=== PATIENT | female | born 2005 | race Caucasian/White ===

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

== ENCOUNTER 2023-07-20 18:27 | Emergency (ER) | payer OTHER, SELFPAY ==
[2023-07-20 18:50] VITALS: BP 126/69; PULSE 70; RESP 21; TEMP 36.7; O2SAT 98; BMI 27.3
[2023-07-20 19:08] LABS: UTC Strep Screen (Rapid) Positive (Negative)
[2023-07-20 19:09] LABS: UTC Influenza A Antigen Negative (Negative); UTC Influenza B Antigen Negative (Negative)
[2023-07-20 19:10] VITALS: BP 126/69; PULSE 70; RESP 21; TEMP 36.7; O2SAT 98
--- NOTE | 2023-07-20 19:12 | ED_ITS ---
Discharge Plan Disposition Patient Disposition: Home, Self-Care Condition: Good Prescriptions Prescriptions: New azithromycin [azithromycin] 250 mg tablet 250 mg PO DIRECTED Qty: 4 0RF Rx Instructions: one (1) tablet day #2 thru #5- FIRST DOSE GIVEN IN [facility] No Action norgestimate-ethinyl estradiol [Tri-Sprintec (28)] 0.18/0.215/0.25 mg-35 mcg (28) tablet See Rx Instructions .ROUTE .COMPLEX Qty: 28 0RF Dose Instruction: TAKE ONE TABLET BY MOUTH ONCE A DAY Rx Instructions: TAKE ONE TABLET BY MOUTH ONCE A DAY Referrals Follow up/Referrals: Provider,Referral, MD [Primary Care Provider] - See instructions Activity Restrictions/Add. Instructions Additional Instructions/Restrictions: Start antibiotics today be sure to take it as ordered with the full length of time although you should start feeling better in 24-48 hours. Change toothbrush and toothpaste 24-48 hours after starting antibiotics Tylenol or Motrin as needed for fever or pain Encourage fluids, water, Gatorade, Powerade, try cold fluids, popsicles, ice cream will make it feel better You are contagious for 24 hours. Avoid kissing anyone, no eating or drinking after anyone. You are contagious. Follow-up the ER for new or worsening symptoms or no noticeable improvement over the next 24-48 hours. Follow-up with PCP this week. Clinical Impressions Clinical Impression: Strep sore throat Stand Alone Forms Stand Alone Forms: Work/School Release Instructions Patient Instructions: DI for Strep Throat Discharge ED Provider: Airam ([facility])Xiomy [facility] HPI General Stated complaint: Sore throat,earache Mode of Arrival: Ambulatory Source of Information: Patient Limitations: No Limitations Time Seen by Provider: 07/20/23 19:17 Description of Symptoms (Recalled from Triage Doc. by RN): PATIENT C/O SORE THR OAT, COUGH, RUNNY NOSE, CHEST CONGESTION AND EAR PAIN SINCE SATURDAY HEENT Symptoms (Recalled from RN notes): Yes Resp Symptoms (Recalled from RN notes): Yes Skin Symptoms (Recalled from RN notes): No MS Symptoms (Recalled from RN notes): No Functional Status (Recalled from RN notes): WNL History of Present Illness Provider Complaint: 17 YR OLD FEMALE PRESENTS FOR C/O SORE THROAT, COUGH, RUNNY NOSE, CHEST CONGESTION AND EAR PAIN SINCE SATURDAY Related Data Previous Rx's Medication Instructions Recorded norgestimate-ethinyl estradiol See Rx Instructions .Route 11/26/22 0.18 mg/0.215mg/0.25mg-35 .COMPLEX #28 tabs mcg(28)tablet (Tri-Sprintec (28)) azithromycin 250 mg tablet 250 mg PO DIRECTED #4 tabs 07/20/23 Allergies Allergy/AdvReac Type Severity Reaction Status Date / Time No Known Allergies Allergy Verified 06/13/22 13:18 Worker's Comp Is this a Worker's Comp case?: No [facility] Disclaimer: The information contained in this section may have been updated after the patie nt was seen, as this information can be updated by other users. Medical History (Reviewed 07/20/23 @ 19:17 by Xiomy Alegria ([facility]), [employer]) Asthma in Pediatric Patient Attention Deficit Hyperactivity Disorder (ADHD) Social History (Reviewed 07/20/23 @ 19:17 by Xiomy Alegria ([facility]), [employer]) Smoking Status: Never smoker alcohol intake: never substance use type: denies use current occupational status: student Travel in the last 8 weeks: None household members: family ROS Obtained: Yes All systems reviewed & no additional complaints except as documented Constitutional Constitutional: Reports system reviewed and no additional complaints, except as documented, Reports as per HPI and Reports fever(s) Eyes Eyes: Reports system reviewed and no additional complaints, except as documented ENT Ears, Nose, Mouth, and Throat: Reports system reviewed and no additional complaints, except as documented, Reports as per HPI, Reports otalgia, Reports nasal congestion, Reports nasal discharge, Reports sinus pain and Reports sore throat Cardiovascular Cardiovascular: Reports system reviewed and no additional complaints, except as documented Respiratory Respiratory: Reports system reviewed and no additional complaints, except as documented and Reports cough Musculoskeletal Musculoskeletal: Reports system reviewed and no additional complaints, except as documented Integumentary/Breasts Skin/Breast: Reports system reviewed and no additional complaints, except as documented Neurologic Neurologic: Reports system reviewed and no additional complaints, except as documented Endocrine Endocrine: Reports system reviewed and no additional complaints, except as documented Hematologic/Lymphatic Henatologic/Lymphatic: Reports system reviewed and no additional complaints, except as documented Allergic/Immunologic Allergic/Immunologic: Reports system reviewed and no additional complaints, except as documented Physical Exam General General appearance: alert and in no apparent distress Head Head exam: atraumatic Eye Eye exam: Present normal appearance and PERRL ENT ENT exam: Present mucous membranes moist and TM's normal bilaterally Expanded ENT Exam TM/Canal exam: Left TM: erythema Throat exam: Present tonsillar erythema, tonsillomegaly and tonsillar exudate Respiratory Respiratory exam: Present normal lung sounds bilaterally Cardiovascular Cardiovascular exam: Present regular rate and normal rhythm Neurological Exam Neurological exam: Present alert and oriented X3 Skin Skin exam: Present warm Medical Decision Making Medical Records Medical records reviewed: Yes I reviewed the patient's medical records. Ford Inquiry Pt receiving controlled substance: No Ford was queried for this patient: No Vital Signs: 07/20/23 18:50 07/20/23 19:10 Temperature 98.0 F 98.0 F Temperature Source Oral Pulse Rate 70 Pulse Rate [Left Brachial] 70 Respiratory Rate 21 21 Blood Pressure 126/69 Blood Pressure [Left Arm] 126/69 Blood Pressure Mean [Left Arm] 88 Blood Pressure Source [Left Arm] Automatic Cuff Blood Pressure Position [Left Arm] Sitting 02 Sat by Pulse Oximetry 98 Oxygen Delivery Method Room Air Lab Data Lab results reviewed: Yes I reviewed the patient's lab results. Lab Results 07/20/23 19:00: Influenza Type A Ag Negative, Influenza Type B Ag Negative, Strep Scn Rapid [facility] Positive A
[2023-07-20] MEDS: AZITHROMYCIN 250MG TABLET 500 MG PO (19:27)
== END 2023-07-20 19:27 | disposition home or self-care (01) ==
PROVIDERS: Emergency Provider Nurse Practitioner Family
DX: J02.0 Streptococcal pharyngitis (principal); R07.0 Pain in throat; R50.9 Fever, unspecified; R05.9 Cough, unspecified; H92.03 Otalgia, bilateral; R09.81 Nasal congestion
CPT/HCPCS: 87804; 87880; 99212; 99214; G0463

== ENCOUNTER 2023-09-19 15:38 | Outpatient (CLI) | payer OTHER, SELFPAY ==
[2023-09-21 08:07] LABS: HCV Ab Non Reactive (Non Reactive); HIV Screen 4th Generation wRfx Non Reactive (Non Reactive); Hepatitis B Surface Antigen Negative (Negative)
[2023-09-21 11:18] LABS: Rapid Plasma Reagin Ab Titer Non Reactive titer (NonRea<1:1)
[2023-09-23 04:07] LABS: Neisseria gonorrhoeae, NAA Negative (Negative)
== END 2023-09-19 23:59 | disposition home or self-care (01) ==
LOC: LAB 16:08
PROVIDERS: PCP Physician Assistant; Visit Provider Obstetrics & Gynecology
DX: Z01.419 Encounter for gynecological examination (general) (routine) without abnormal findings (principal); Z72.51 High risk heterosexual behavior
CPT/HCPCS: 36415; 86593; 86703; 87340; 87491; 87591; G0432

== ENCOUNTER 2024-06-05 10:25 | Emergency (ER) | payer OTHER, SELFPAY ==
[2024-06-05 10:27] VITALS: BP 154/90; PULSE 93; RESP 20; TEMP 36.8; O2SAT 99; BMI 30.7
--- NOTE | 2024-06-05 10:46 | XR_ITS ---
FINAL REPORT CLINICAL HISTORY: ankle injury. fell in a hole. lateral ankle pain. unable to flex foot FINDINGS: Left foot Three views were obtained. There is no fracture or dislocation. The joint spaces appear normal. No soft tissue abnormality is identified. IMPRESSION: No acute process. Reviewed, Interpreted and Dictated by Fazal Willett MD Transcribed by Em Groves Authenticated and [facility]
--- NOTE | 2024-06-05 10:46 | XR_ITS ---
FINAL REPORT CLINICAL HISTORY: ankle injury. fell in a hole. lateral pain. unable to flex foot FINDINGS: Left ankle Three views were obtained. There is no fracture or dislocation. The joint spaces appear normal. No soft tissue abnormality is identified. IMPRESSION: No acute process. Reviewed, Interpreted and Dictated by Fazal Willett MD Transcribed by Em Groves Authenticated and [facility]
--- NOTE | 2024-06-05 10:46 | XR_ITS ---
FINAL REPORT CLINICAL HISTORY: ankle injury. fell in a hole. lateral pain. unable to flex foot FINDINGS: Left tibia fibula Two views were obtained. There is no fracture or dislocation. The joint spaces appear normal. No soft tissue abnormality is identified. IMPRESSION: No acute process. Reviewed, Interpreted and Dictated by Fazal Willett MD Transcribed by Em Groves Authenticated and . [facility]
--- NOTE | 2024-06-05 10:56 | PC.NURSE ---
portable rad at BS
--- NOTE | 2024-06-05 10:59 | ED_ITS ---
Discharge Plan Disposition Patient Disposition: Home, Self-Care Prescriptions Prescriptions: No Action norgestimate-ethinyl estradiol [Tri-Sprintec (28)] 0.18/0.215/0.25 mg-35 mcg (28) tablet See Rx Instructions .ROUTE .COMPLEX Qty: 28 12RF Dose Instruction: TAKE ONE TABLET BY MOUTH ONCE A DAY Rx Instructions: TAKE ONE TABLET BY MOUTH ONCE A DAY Referrals Follow up/Referrals: Marcia Rodriguez PA [Primary Care Provider] - See instructions Activity Restrictions/Add. Instructions Additional Instructions/Restrictions: Recommend ice, elevation, compression with Danyel wrap, Tylenol and ibuprofen as needed for pain. Weight-bear as you can tolerate. Please return the emerged part with any new, concerning, worsening symptoms. Clinical Impressions Clinical Impression: Acute ankle pain Qualifiers: Laterality: left Qualified Code(s): M25.572 - Pain in left ankle and joints of left foot Print Language Print Language: Yi Discharge ED Provider: Tru Garvin General Adult HPI General Chief complaint: Extremity Injury, Lower Stated complaint: AO 06/05/24 left ankle injury Time Seen by Provider: 06/05/24 10:38 Mode of Arrival: Ambulatory Source of Information: Patient Limitations: No Limitations Description of Symptoms (Recalled from ER Triage Doc. by RN): pt is having left ankle pain after stepping a hole yesterday, pt was ablet to bear weight and walk but today after waking up left ankle is very sore and swollen History of Present Illness HPI narrative: This is a 18-year-old female who presents with a left ankle injury yesterday. States that she stepped in a hole. Did not hit her head or lose consciousness. Has been ambulatory. Is having worsening pain to the left ankle today. Related Data Previous Rx's ?Medication ?Instructions ?Recorded norgestimate-ethinyl estradiol See Rx Instructions .Route 10/25/23 0.18 mg/0.215mg/0.25mg-35 .COMPLEX #28 tabs mcg(28)tablet (Tri-Sprintec (28)) Allergies Allergy/AdvReac Type Severity Reaction Status Date / Time No Known Allergies Allergy Verified 09/19/23 14:16 [facility] Disclaimer: The information contained in this section may have been updated after the patient was seen, as this information can be updated by other users. Medical History (Updated 06/05/24 @ 11:22 by Tru Garvin MD) Asthma in Pediatric Patient Attention Deficit Hyperactivity Disorder (ADHD) Surgical History (Updated 09/19/23 @ 14:24 by GLADIS Scott) H/O wrist surgery Family History (Updated 09/19/23 @ 14:24 by GLADIS Scott) Other Family history non-contributory Social History (Updated 09/19/23 @ 14:25 by GLADIS Scott) Smoking Status: Never smoker alcohol intake: never substance use type: denies use current occupational status: student Travel in the last 8 weeks: None household members: family Have you lived/traveled outside US in past 30 days?: No Contact w/someone who lives/traveled outside US past 30 days?: No Exposure to someone with infectious disease in past 14 days?: No Do you have a fever (greater than 100.4 F or 38 C)?: No Have you tested positive for COVID-19: No Exposed to someone with COVID-19 in past 14 days?: No Do you have a sore throat?: No Do you have a cough?: No Do you have any weakness?: No Do you have any diarrhea?: No Are you experiencing any unusual bleeding?: No Do you have any muscle aches/pain?: Yes Do you have any abdominal pain?: No Are you experiencing loss of taste or smell?: No Other Medical History Have you received the Flu Vaccine for this season: Yes Have you received the Pneumonia Vaccine: No ROS Obtained: Yes All systems reviewed & no additional complaints except as documented Physical Exam General General appearance: alert and in no apparent distress Eye Eye exam: Present normal appearance, PERRL and EOMI Respiratory Respiratory exam: Present normal lung sounds bilaterally; Absent respiratory distress Cardiovascular Cardiovascular exam: Present regular rate and normal rhythm Abdominal Exam Abdominal exam: Present soft and distention; Absent tenderness, guarding or rebound Extremities Exam Extremities exam: Present normal inspection Back Exam Comment: Tenderness to left lateral malleolus. No significant deformity. Neurovascular intact distally. Neurological Exam Neurological exam: Present alert and oriented X3 Skin Skin exam: Present warm and dry Medical Decision Making Medical Records Medical records reviewed: Yes I reviewed the patient's medical records. Screening: Per USPSTF and CDC recommendations, given the prevalence of disease in our region, it is our hospital?s policy to screen for HIV and viral Hepatitis for all patients aged 18 and over and those with ongoing risk factors. Ford Inquiry Pt receiving controlled substance: No Vital Signs: 06/05/24 10:27 06/05/24 11:00 06/05/24 11:30 Temperature 98.2 F Temperature Source Oral Pulse Rate 89 72 Pulse Rate [Left Radial] 93 H Respiratory Rate 20 Blood Pressure 148/83 H 131/83 Blood Pressure [Right Arm] 154/90 H Blood Pressure Mean [Right Arm] 111 02 Sat by Pulse Oximetry 99 98 98 Oxygen Delivery Method Room Air Room Air Room Air 06/05/24 11:36 Temperature 98.2 F Temperature Source Pulse Rate 68 Pulse Rate [Left Radial] Respiratory Rate 20 Blood Pressure 131/83 Blood Pressure [Right Arm] Blood Pressure Mean [Right Arm] 02 Sat by Pulse Oximetry Oxygen Delivery Method Room Air Orders (Tests/Meds): ORDERS Category Date Time Status XR ankle LT 2V Stat Exams 06/05/24 10:46 Completed XR foot LT min 3V Stat Exams 06/05/24 10:46 Completed XR tibia fibula LT 2V Stat Exams 06/05/24 10:46 Completed Medical Decision Narrative: This is an otherwise healthy 18-year-old female who presents for evaluation of left ankle pain after stepping in a hole yesterday. On arrival, stable and well-appearing. No significant deformity however tender to the left lateral malleolus. Differential diagnose includes but is not limited to sprain, fracture, dislocation. Will obtain x-ray imaging of the left foot, ankle, tib- fib to evaluate. X-ray imaging independently interpreted by me, revealing no acute osseous pathology. Most likely etiology of her symptoms is an ankle sprain. Counseled on RICE therapy at home. Discharged in stable condition. Critical Care Critical Care Time Critical Care Time: No
[2024-06-05 11:00] VITALS: BP 148/83; PULSE 89; O2SAT 98
[2024-06-05 11:30] VITALS: BP 131/83; PULSE 72; O2SAT 98
[2024-06-05 11:36] VITALS: BP 131/83; PULSE 68; RESP 20; TEMP 36.8; O2SAT 98
== END 2024-06-05 11:37 | disposition home or self-care (01) ==
PROVIDERS: Emergency Provider Student in an Organized Health Care Education/Training Program; PCP Physician Assistant
DX: M25.572 Pain in left ankle and joints of left foot (principal); M79.672 Pain in left foot; M79.605 Pain in left leg; X58.XXXA Exposure to other specified factors, initial encounter; Y93.89 Activity, other specified; Y92.9 Unspecified place or not applicable
CPT/HCPCS: 73590; 73600; 73630; 99283

== ENCOUNTER 2024-12-29 15:27 | Outpatient (CLI) | payer OTHER, SELFPAY ==
--- OUTSIDE RECORDS SUMMARY | 2024-12-29 15:30 | XMS_ITS | Clinical Summary ---
Author Organization Healthcare Address [address] [place] [address] Care Team Providers Care Lens Engraver Name Role Phone Surya Mir MD Primary Care Provider + [phone] Allergies No known active allergies Social History Tobacco Use Types Packs/Day Years Used Date Smoking Tobacco: Never Assessed Comments Unknown Sex and Gender Information Value Date Recorded Sex Assigned at Not on file Legal Sex Female 7:54 PM EDT Gender Identity Not on file Sexual Orientation Not on file Last Filed Vital Signs Vital Sign Reading Time Taken Comments Blood Pressure 122/78 07/05/2022 5:44 PM EST Pulse 84 07/05/2022 5:44 PM EST Temperature 36.7 C (98 F) 07/05/2022 1:38 PM EST Respiratory Rate 16 07/05/2022 5:44 PM EST Oxygen Saturation 98% 07/05/2022 5:44 PM EST Inhaled Oxygen Concentration - - Weight 78.2 kg (172 lb 6.4 oz) 07/05/2022 1:21 P M EST Height 170.2 cm (5' 7 ) 07/05/2022 1:21 PM EST Body Mass Index 27 07/05/2022 1:21 PM EST Plan of Treatment Health Maintenance Due Date Last Done Comments [facility]-Depression Screening 2003 [facility]-HIV Screening 2003 [facility]-Hepatitis C Screening 2003 [facility]-/Child/Adol SDOH Screenings 2003 [facility]-Obesity Intervention 09/09/2009 [facility]- SDOH Screenings 09/09/2021 [facility]-Adult SDOH Screenings 09/09/2021 [id number] Vaccine (2 - season) 2024 06/08/2021 [facility]-Pap Smear 09/09/2024 [facility]-Influenza Vaccine (#1) 01/18/202503/16, 04/05/2020, 03/03/2019, Additional history exists [facility]-DTaP,Tdap,and Td Vaccines (4 - Td or Tdap) 05/23/2032 05/23/2022, 01/13/2016, 09/11/2007 [facility]-Zoster Vaccines (1 of 2) 09/09/2053 01/13/2016, 09/11/2004 [facility]-HIB Vaccines Aged Out 09/11/2004, 2003 N o longer eligible based on patient's age to complete this topic [facility]-Hepatitis B Vaccines Completed 008, 09/11/2004, 2003 [facility]-IPV Vaccines Completed 09/11/2007, , 01/17/2004, Additional history exists [facility]-Varicella Vaccines Completed 01/13/2016, 2004 HPV Vaccines Completed 09/24/2016, 03/02/2016 [facility]-Hepatitis A Vaccines Completed 01/06/2018, 02/17 [facility]-Pneumococcal Vaccine: Pediatrics (0 to 5 Years) and At-Risk Patients (6 to 49 Years) Aged Out No longer eligible based on patient's age to complete this topic [facility]-Rotavirus Vaccines Aged Out No lo nger eligible based on patient's age to complete this topic Insurance [facility] MEDICAID Care Teams Lens Engraver Relationship Specialty Start Date End Date Surya Mir MD [address] [place] [address] PCP - General 07/05/22
[2024-12-29 18:14] LABS: Hepatitis C Ab Qual. W/ RFX NEGATIVE (Negative)
[2024-12-30 09:15] LABS: Hepatitis B Surface Antigen Negative (Negative)
[2024-12-30 15:40] LABS: RPR W/RFX Titers Nonreactive (Nonreactive)
== END 2024-12-29 23:59 | disposition home or self-care (01) ==
LOC: LAB 15:28
PROVIDERS: PCP Physician Assistant; Visit Provider Obstetrics & Gynecology
DX: Z20.2 Contact with and (suspected) exposure to infections with a predominantly sexual mode of transmission (principal)
CPT/HCPCS: 36415; 86592; 86803; 87389; 87529